=== PATIENT | female | born 1945 | race African-American/Black ===

== ENCOUNTER → 2017-06-04 | Outpatient (CLI) | payer MEDICARE ==
--- NOTE | 2017-06-04 13:50 | MM ---
Reason for exam: additional evaluation requested from prior study. Last mammogram was performed 1 year ago. History: Patient is postmenopausal and has history of breast cancer at age 64. Excisional biopsy of the right breast, April 23, 2009. Mastectomy of the right breast, April 2009. Benign right mammotome panel of the right breast, September 11, 2006. Benign excisional biopsy of the left breast, 1989. Taking antineoplastic for 10 months beginning at age 64. Physical Findings: Nurse did not find any significant physical abnormalities on exam. MG 3D Diag Mammo W/Cad LT CC and MLO view(s) were taken of the left breast. Prior study comparison: June 02, 2016, left breast MG 3d diag mammo w/cad LT. May 30, 2015, left breast MG diagnostic mammo LT w CAD. There are scattered fibroglandular densities. Benign calcifications. There is no discrete abnormality. No significant new findings when compared with previous films. These results were verbally communicated with the patient and result sheet given to the patient on 06/04/17. ASSESSMENT: Benign, BI-RAD 2 RECOMMENDATION: Follow-up diagnostic mammogram of the left breast in 1 year.
== END | disposition home or self-care (01) ==
LOC: RADMAMWWP 12:35
PROVIDERS: ATTEND Internal Medicine Hematology & Oncology
DX: Z08 Encounter for follow-up examination after completed treatment for malignant neoplasm (principal); Z85.3 Personal history of malignant neoplasm of breast
CPT/HCPCS: G0206; G0279

== ENCOUNTER → 2018-02-19 | Outpatient (CLI) | payer MEDICARE ==
--- NOTE | 2018-02-19 10:47 | US ---
EXAMINATION TYPE: US carotid duplex BILAT DATE OF EXAM: 02/19/2018 COMPARISON: NONE CLINICAL HISTORY: R09.89 CAROTID BRUIT. Bruit, ringing in ears EXAM MEASUREMENTS: RIGHT: Peak Systolic Velocity (PSV) cm/sec ----- Right CCA: 56.1 ----- Right ICA: 100.7 ----- Right ECA: 80.0 ICA/CCA ratio: 1.8 RIGHT: End Diastole cm/sec ----- Right CCA: 18.8 ----- Right ICA: 41.4 ----- Right ECA: 17.1 LEFT: Peak Systolic Velocity (PSV) cm/sec ----- Left CCA: 82.3 ----- Left ICA: 119.5 ----- Left ECA: 78.8 ICA/CCA ratio: 1.5 LEFT: End Diastole cm/sec ----- Left CCA: 22.1 ----- Left ICA: 47.0 ----- Left ECA: 15.1 VERTEBRALS (direction of flow): Right Vertebral: Antegrade Left Vertebral: Antegrade Rhythm: Normal IMPRESSION: 1.Mild homogeneous plaque with no significant stenosis seen Criteria for Assigning % of Stenosis / Diameter reduction (Estimation based on the indirect measurements of the internal carotid artery velocities (ICA PSV). 1. Normal (no stenosis)=ICA PSV < 125 cm/s: ratio < 2.0: ICA EDV<40 cm/s. 2. Less than 50% stenosis=ICA PSV < 125 cm/s: ratio < 2.0: ICA EDV<40 cm/s. 3. 50 to 69% stenosis=ICA PSV of 125 to 230 cm/s: ration 2.0 ? 4.0: ICA EDV 40-100 cm/s. 4. Greater than 70% stenosis to near occlusion= ICA PSV > 230 cm/s: ratio > 4.0: ICA EDV > 100 cm/s. 5. Near occlusion= ICA PSV velocities may be low or undetectable: variable ratio and ICA EDV. 6. Total occlusion=unable to detect flow.
== END | disposition home or self-care (01) ==
LOC: RADUSWWP 09:24
PROVIDERS: ATTEND Family Medicine
DX: I65.29 Occlusion and stenosis of unspecified carotid artery (principal)
CPT/HCPCS: 93880

== ENCOUNTER → 2018-06-07 | Outpatient (CLI) | payer MEDICARE ==
--- NOTE | 2018-06-07 14:23 | MM ---
Reason for exam: additional evaluation requested from prior study. Last mammogram was performed 1 year ago. History: Patient is postmenopausal and has history of breast cancer at age 64. Excisional biopsy of the right breast, April 23, 2009. Mastectomy of the right breast, April 2009. Benign right mammotome panel of the right breast, September 11, 2006. Benign excisional biopsy of the left breast, 1989. Taking antineoplastic for 10 months beginning at age 64. Physical Findings: Nurse did not find any significant physical abnormalities on exam. MG 3D Diag Mammo W/Cad LT CC and MLO view(s) were taken of the left breast. Prior study comparison: June 04, 2017, left breast MG 3d diag mammo w/cad LT. June 02, 2016, left breast MG 3d diag mammo w/cad LT. The breast tissue is heterogeneously dense. This may lower the sensitivity of mammography. Stable benign calcifications. No significant new findings when compared with previous films. These results were verbally communicated with the patient and result sheet given to the patient on 06/07/18. ASSESSMENT: Benign, BI-RAD 2 RECOMMENDATION: Follow-up diagnostic mammogram of the left breast in 1 year.
== END | disposition home or self-care (01) ==
LOC: RADMAMWWP 13:17
PROVIDERS: ATTEND Internal Medicine Hematology & Oncology
DX: Z08 Encounter for follow-up examination after completed treatment for malignant neoplasm (principal); Z85.3 Personal history of malignant neoplasm of breast; Z90.11 Acquired absence of right breast and nipple
CPT/HCPCS: 77065; G0279; 77061

== ENCOUNTER 2018-08-22 06:09 | Emergency (ER) | payer MEDICARE ==
[2018-08-22 06:17] VITALS: RESP 18
[2018-08-22] MEDS ORDERED: diphenhydrAMINE 25 MG CAP PO STA (06:38)
[2018-08-22] MEDS ORDERED: METOCLOPRAMIDE 5 MG/ML 2 ML VIAL IVP STA (06:38)
[2018-08-22] MEDS ORDERED: SODIUM CHLORIDE 0.9% 1,000 ML IV STA (06:38)
--- NOTE | 2018-08-22 06:46 | ED ---
General Adult HPI - General Source: patient Mode of arrival: ambulatory Limitations: no limitations <Mary Vaughan - Last Filed: 08/22/18 07:23> <Savage Gonzalez - Last Filed: 08/22/18 08:19> - General Chief complaint: Headache Stated complaint: Headache x 1 week Time Seen by Provider: 08/22/18 06:26 - History of Present Illness Initial comments: She is a 73-year-old morbidly obese -[place] female with a history of breast cancer which was treated surgically. Patient presents to the emergency department today for evaluation of 1 week of headache. She describes the headache as pressure-like band around her whole head but worse in the occiput. Patient reports that the headache is worse at night when she is in bed and seems to improve during the day when she is up and walking around. Headache is associated with ringing in the ears and phonophobia. No vision changes or photophobia. Patient denies any history of headaches. She has not taken anything for this headache including bitn-dur-augqmct medications such as Tylenol or Motrin. Patient reports that last night she was laying in bed, the headache was bothering her and she suddenly began to feel numbness of her entire body. She's never spirits anything like this. Patient reports that when she is to get up she felt very lightheaded. At that point she decided to come to the ER for further evaluation. Denies any fever, vision changes, focal neurologic deficits, weakness in one arm 1 and legs or difficulty with speech or swallowing. She denies any chest pain or shortness of breath. (Mary Vaughan) - Related Data Home Medications Medication Instructions Recorded Confirmed Lisinopril-Hctz 10-12.5 mg 1 tab PO DAILY 04/14/15 08/07/15 [Zestoretic 10-12.5] amLODIPine BESYLATE [Norvasc] 5 mg PO DAILY 04/14/15 08/07/15 CHLORPHEN-HYDROcod 8-10mg/5ml 5 ml PO HS 08/07/15 08/07/15 [Tussionex] Previous Rx's Medication Instructions Recorded Benzonatate [Tessalon Perles] 100 mg PO TID #30 cap 08/07/15 Ciprofloxacin HCl [Cipro] 500 mg PO Q12HR #20 tablet 08/07/15 Pantoprazole Sodium [Protonix] 40 mg PO DAILY #30 tablet. 08/07/15 Allergies Allergy/AdvReac Type Severity Reaction Status Date / Time shellfish derived Allergy Dyspnea Verified 08/22/18 06:17 Review of Systems ROS Other: All systems not noted in ROS Statement are negative. <Mary Vaughan - Last Filed: 08/22/18 07:23> ROS Other: All systems not noted in ROS Statement are negative. <Savage Gonzalez - Last Filed: 08/22/18 08:19> ROS Statement: Those systems with pertinent positive or pertinent negative responses have been documented in the HPI. Past Medical History Past Medical History: Cancer, GERD/Reflux, Hypertension Additional Past Medical History / Comment(s): BREAST History of Any Multi-Drug Resistant Organisms: None Reported Past Surgical History: Breast Surgery, Hysterectomy Additional Past Surgical History / Comment(s): RT MASTECTOMY Past Psychological History: No Psychological Hx Reported Smoking Status: Former smoker Past Alcohol Use History: None Reported Past Drug Use History: None Reported <Mary Vaughan P - Last Filed: 08/22/18 07:23> General Exam Limitations: no limitations <Mary Vaughan - Last Filed: 08/22/18 07:23> <Savage Gonzalez - Last Filed: 08/22/18 08:19> - General Exam Comments Initial Comments: GENERAL: Patient is well-developed and well-nourished. Patient is nontoxic and well- hydrated and is in no distress. HENT: Normocephalic, Atraumatic. Neck is soft and supple. No significant lymphadenopathy is noted. Oropharynx is clear. Moist mucous membranes. Neck has full range of motion without eliciting any pain. EYES: The sclera were anicteric and conjunctiva were pink and moist. Extraocular movements were intact and pupils were equal round and reactive to light. Eyelids were unremarkable. No papilledema on funduscopic exam PULMONARY: Unlabored respirations. Good breath sounds bilaterally. No audible rales rhonchi or wheezing was noted. CARDIOVASCULAR: There is a regular rate and rhythm without any murmurs gallops or rubs. ABDOMEN: Soft and nontender with normal bowel sounds. SKIN: Skin is clear with no lesions or rashes and otherwise unremarkable. NEUROLOGIC: Patient is alert and oriented x3. Cranial nerves II through XII are grossly intact. Motor and sensory are also intact. Normal speech, volume and content. Symmetrical smile. MUSCULOSKELETAL: Normal extremities with adequate strength and full range of motion. No lower extremity swelling or edema. No calf tenderness. LYMPHATICS: No significant lymphadenopathy is noted PSYCHIATRIC: Normal psychiatric evaluation. Limitations: no limitations (Mary Vaughan) Vital Signs 08/22/18 08/22/18 06:13 08:08 Temperature 98.3 F 98.0 F Pulse Rate 76 75 Respiratory 18 18 Rate Blood Pressure 144/76 157/85 O2 Sat by Pulse 99 100 Oximetry Medical Decision Making - Lab Data Result diagrams: 08/22/18 07:01 08/22/18 07:01 - EKG Data -: EKG Interpreted by Ca <Mary Vaughan - Last Filed: 08/22/18 07:23> - Lab Data Result diagrams: 08/22/18 07:01 08/22/18 07:01 <Savage Gonzalez - Last Filed: 08/22/18 08:19> - Medical Decision Making Patient was seen and evaluated history was obtained from the patient No history of headaches presenting with 1 week of headache with associated tinnitus and lightheadedness, no vertigo Physical exam unremarkable Labs and imaging ordered Patient care was signed out to Dr. Gonzalez at 7 AM. (Mary Vaughan) - Lab Data Lab Results 08/22/18 08/22/18 08/22/18 Range/Units 07:01 07:01 07:01 WBC 4.8 (3.8-10.6) k/uL RBC 4.65 (3.80-5.40) m/uL Hgb 13.6 (11.4-16.0) gm/dL Hct 40.9 (34.0-46.0) % MCV 88.0 (80.0-100.0) fL MCH 29.3 (25.0-35.0) pg MCHC 33.3 (31.0-37.0) g/dL RDW 13.9 (11.5-15.5) % Plt Count 231 (150-450) k/uL Neutrophils % 59 % Lymphocytes % 30 % Monocytes % 6 % Eosinophils % 2 % Basophils % 0 % Neutrophils # 2.9 (1.3-7.7) k/uL Lymphocytes # 1.4 (1.0-4.8) k/uL Monocytes # 0.3 (0-1.0) k/uL Eosinophils # 0.1 (0-0.7) k/uL Basophils # 0.0 (0-0.2) k/uL PT 9.8 (9.0-12.0) sec INR 1.0 (<1.2) APTT 23.7 (22.0-30.0) sec Sodium 141 (137-145) mmol/L Potassium 3.7 (3.5-5.1) mmol/L Chloride 107 (98-107) mmol/L Carbon Dioxide 26 (22-30) mmol/L Anion Gap 8 mmol/L BUN 20 H (7-17) mg/dL Creatinine 0.81 (0.52-1.04) mg/dL Est GFR (CKD-EPI)AfAm 84 (>60 ml/min/1.73 sqM) Est GFR (CKD-EPI)NonAf 73 (>60 ml/min/1.73 sqM) Glucose 121 H (74-99) mg/dL Calcium 9.6 (8.4-10.2) mg/dL Total Bilirubin 0.5 (0.2-1.3) mg/dL AST 19 (14-36) U/L ALT 22 (9-52) U/L Alkaline Phosphatase 95 (38-126) U/L Total Protein 6.8 (6.3-8.2) g/dL Albumin 3.9 (3.5-5.0) g/dL - EKG Data EKG Comments: EKG obtained at 620, rate is 81, there are no discernible P waves, a narrow complex rhythm. QRS is 88, QTC is 453. (Mary Vuaghan) Disposition <Mary Vaughan - Last Filed: 08/22/18 07:23> Is patient prescribed a controlled substance at d/c from ED?: No <Savage Gonzalez - Last Filed: 08/22/18 08:19> Clinical Impression: Headache Disposition: HOME SELF-CARE Condition: Good Instructions: Acute Headache (ED) Referrals: Marilin Aden DO [Primary Care Provider] - 1-2 days
[2018-08-22 07:11] LABS: Basophils % (A) 0 %; Eosinophils # (A) 0.1 k/uL (0-0.7); Eosinophils % (A) 2 %; HCT 40.9 % (34.0-46.0); HGB 13.6 gm/dL (11.4-16.0); Lymphocytes # (A) 1.4 k/uL (1.0-4.8); Lymphocytes % (A) 30 %; MCH 29.3 pg (25.0-35.0); MCHC 33.3 g/dL (31.0-37.0); Mean Platelet Volume 6.5; Monocytes # (A) 0.3 k/uL (0-1.0); Monocytes % (A) 6 %; Neutrophils # (A) 2.9 k/uL (1.3-7.7); Neutrophils % (A) 59 %; Platelet Count 231 k/uL (150-450); RBC 4.65 m/uL (3.80-5.40); RDW 13.9 % (11.5-15.5); WBC 4.8 k/uL (3.8-10.6)
[2018-08-22 07:19] LABS: Albumin 3.9 g/dL (3.5-5.0); Calcium 9.6 mg/dL (8.4-10.2); Potassium 3.7 mmol/L (3.5-5.1); Total Bilirubin 0.5 mg/dL (0.2-1.3); Total Protein 6.8 g/dL (6.3-8.2)
[2018-08-22 07:22] LABS: Partial Thromboplastin Time 23.7 sec (22.0-30.0); Prothrombin Time 9.8 sec (9.0-12.0)
--- NOTE | 2018-08-22 07:36 | CT ---
EXAMINATION TYPE: CT brain wo con DATE OF EXAM: 08/22/2018 COMPARISON: Previous study dated 09/06/2010. HISTORY: headache x1 week CT DLP: 1218.4 mGycm Automated exposure control for dose reduction was used. FINDINGS: Central structures are midline. There is no evidence of hydrocephalus. There is diffuse periventricul ar white matter lucency, compatible with small vessel ischemic change. There is no acute focal lesion , mass effect or midline shift identified. I do not see evidence of intracranial blood. Visualized portions of the paranasal sinuses and mastoids are clear. The bony calvarium is intact. IMPRESSION: 1. NO ACUTE INTRACRANIAL ABNORMALITY. 2. MILD, CHRONIC WHITE MATTER ISCHEMIC CHANGE.
[2018-08-22 08:09] VITALS: BP 157/85; PULSE 75; TEMP 98
[2018-08-22] MEDS ORDERED: KETOROLAC 30 MG/ML 1 ML VIAL IVP STA (08:19)
== END 2018-08-22 08:36 | disposition home or self-care (01) ==
LOC: EC 06:09
DX: R51 Headache (principal); R20.0 Anesthesia of skin; R42 Dizziness and giddiness; I10 Essential (primary) hypertension; Z79.899 Other long term (current) drug therapy; Z91.013 Allergy to seafood; Z85.3 Personal history of malignant neoplasm of breast; Z90.11 Acquired absence of right breast and nipple; Z87.891 Personal history of nicotine dependence
CPT/HCPCS: 36415; 93005; 80053; 85025; 85610; 85730; 70450; 99284; 96374; 96375; 96361 ×2; J2765; J1885

== ENCOUNTER → 2019-06-08 | Outpatient (CLI) | payer MEDICARE ==
--- NOTE | 2019-06-08 11:52 | MM ---
Reason for exam: additional evaluation requested from prior study. Last mammogram was performed 1 year ago. History: Patient is postmenopausal and has history of breast cancer at age 64. Excisional biopsy of the right breast, April 23, 2009. Mastectomy of the right breast, April 2009. Benign right mammotome panel of the right breast, September 11, 2006. Benign excisional biopsy of the left breast, 1989. Taking antineoplastic for 10 months beginning at age 64. Physical Findings: Nurse did not find any significant physical abnormalities on exam. MG 3D Diag Mammo W/Cad LT CC, MLO, and XCCL view(s) were taken of the left breast. Prior study comparison: June 07, 2018, left breast MG 3d diag mammo w/cad LT. June 04, 2017, left breast MG 3d diag mammo w/cad LT. The breast tissue is heterogeneously dense. This may lower the sensitivity of mammography. There is chronic nodularity in the left breast medially. Mole lateral anteriorly. No significant new findings when compared with previous films. These results were verbally communicated with the patient and result sheet given to the patient on 06/08/19. ASSESSMENT: Benign, BI-RAD 2 RECOMMENDATION: Routine screening mammogram of the left breast in 1 year.
== END | disposition home or self-care (01) ==
LOC: RADMAMWWP 10:49
PROVIDERS: ATTEND Internal Medicine Hematology & Oncology
DX: Z08 Encounter for follow-up examination after completed treatment for malignant neoplasm (principal); Z85.3 Personal history of malignant neoplasm of breast; Z90.11 Acquired absence of right breast and nipple
CPT/HCPCS: 77065; G0279; 77061

== ENCOUNTER 2019-09-09 02:27 | Emergency (ER) | payer MEDICARE ==
[2019-09-09] MEDS ORDERED: SODIUM CHLORIDE 0.9% 1,000 ML IV STA (02:54)
[2019-09-09] MEDS ORDERED: PANTOPRAZOLE 40 MG/10 ML VIAL IVP STA (02:55)
--- NOTE | 2019-09-09 02:55 | ED ---
Abdominal Pain HPI - General Chief Complaint: Abdominal Pain Stated Complaint: Abd Pain Time Seen by Provider: 09/09/19 02:43 Source: patient Mode of arrival: ambulatory Limitations: no limitations - History of Present Illness Initial Comments: 74-year-old female presenting today for chief complaint of burning in the upper abdomen times one month. Patient states she has had burning after eating in the upper abdomen times one month. She states she has been evaluated by primary care provider and placed on omeprazole. Patient denies any known cardiac history. Patient states that she has had after the initiation of Cipro and Flagyl some loose stools as well as dark stools. Patient denies any matthew red blood. Patient denies any severe stabbing abdominal pains she describes it more as a burning sensation. Denies chest pain shortness of breath jaw pain and arm pain and new back pain. Patient denies any hemoptysis or hematemesis. Patient denies vomiting or fevers. Patient states she felt she could get the test asked her if she presented to the emergency department rather than an outpatient basis and that is why she presented to the emergency department today denies any significant increase in symptoms. - Related Data Home Medications Medication Instructions Recorded Confirmed Dicyclomine HCl 10 mg PO BID 09/09/19 09/09/19 Hydrochlorothiazide 25 mg PO 09/09/19 Omeprazole 20 mg PO 09/09/19 metroNIDAZOLE [Flagyl] 500 mg PO BID 09/09/19 09/09/19 Previous Rx's Medication Instructions Recorded Ciprofloxacin HCl [Cipro] 500 mg PO Q12HR #20 tablet 08/07/15 Pantoprazole Sodium [Protonix] 40 mg PO DAILY 15 Days #15 09/09/19 tablet. Allergies Allergy/AdvReac Type Severity Reaction Status Date / Time shellfish derived Allergy Dyspnea Verified 08/22/18 06:17 Review of Systems ROS Statement: Those systems with pertinent positive or pertinent negative responses have been documented in the HPI. ROS Other: All systems not noted in ROS Statement are negative. Past Medical History Past Medical History: Cancer, GERD/Reflux, Hypertension Additional Past Medical History / Comment(s): BREAST History of Any Multi-Drug Resistant Organisms: None Reported Past Surgical History: Breast Surgery, Hysterectomy Additional Past Surgical History / Comment(s): RT MASTECTOMY Past Psychological History: No Psychological Hx Reported Smoking Status: Former smoker Past Alcohol Use History: None Reported Past Drug Use History: None Reported General Exam - General Exam Comments Initial Comments: General: The patient is awake and alert, in no distress, and does not appear acutely ill. Eye: +3 mm pupils are equal, round and reactive to light, extra-ocular movements are intact. No nystagmus. There is normal conjunctiva bilaterally. No signs of icterus. Ears, nose, mouth and throat: There are moist mucous membranes and no oral lesions. Cardiovascular: There is a regular rate and rhythm. No murmur, rub or gallop is appreciated. Respiratory: Lungs are clear to auscultation, respirations are non-labored, breath sounds are equal. No wheezes, stridor, rales, or rhonchi. Gastrointestinal: Soft, non-distended, Mild to moderate tenderness to palpation of the epigastric, LUQ of the abdomen without masses or organomegaly noted. There is no rebound or guarding present. Musculoskeletal: Normal ROM, no tenderness. Strength 5/5. Sensation intact. Pulses equal bilaterally 2+. Neurological: A&O x 3. CN II-XII intact grossly, There are no obvious motor or sensory deficits. Coordination appears grossly intact. Speech is normal. Skin: Skin is warm and dry and no rashes or lesions are noted. Psychiatric: Cooperative, appropriate mood & affect, normal judgment. Limitations: no limitations Course Vital Signs 09/09/19 09/09/19 09/09/19 02:34 03:15 03:57 Temperature 97.3 F L Pulse Rate 83 67 64 Respiratory 20 18 18 Rate Blood Pressure 130/88 123/76 121/81 O2 Sat by Pulse 100 100 99 Oximetry 09/09/19 04:41 Temperature 98.1 F Pulse Rate 59 L Respiratory 17 Rate Blood Pressure 117/79 O2 Sat by Pulse 97 Oximetry Medical Decision Making - Medical Decision Making 74-year-old female presenting today for chief complaint of burning epigastric abdominal pain times one month currently on omeprazole. Patient denies any increase in frequency. Troponin negative EKG no acute findings reviewed by my attending provider. CT (-). HgB stable, history of dark stool. Concern for peptic ulcer. Recommend outpatient GI f/u. Protonix. Discussed avoidance of spicy foods, NSAIDs, alcohol, coffee, chocolate. Patient verbalized understanding and was discharged appearing well, agreeable [facility] care plan. - Lab Data Result diagrams: 09/09/19 03:05 09/09/19 03:05 Lab Results 09/09/19 09/09/19 09/09/19 Range/Units 03:05 03:05 03:05 WBC 5.7 (3.8-10.6) k/uL RBC 4.98 (3.80-5.40) m/uL Hgb 14.3 (11.4-16.0) gm/dL Hct 44.3 (34.0-46.0) % MCV 89.0 (80.0-100.0) fL MCH 28.8 (25.0-35.0) pg MCHC 32.3 (31.0-37.0) g/dL RDW 13.2 (11.5-15.5) % Plt Count 267 (150-450) k/uL Neutrophils % 53 % Lymphocytes % 36 % Monocytes % 6 % Eosinophils % 2 % Basophils % 0 % Neutrophils # 3.0 (1.3-7.7) k/uL Lymphocytes # 2.1 (1.0-4.8) k/uL Monocytes # 0.4 (0-1.0) k/uL Eosinophils # 0.1 (0-0.7) k/uL Basophils # 0.0 (0-0.2) k/uL Sodium 139 (137-145) mmol/L Potassium 3.6 (3.5-5.1) mmol/L Chloride 108 H (98-107) mmol/L Carbon Dioxide 20 L (22-30) mmol/L Anion Gap 11 mmol/L BUN 21 H (7-17) mg/dL Creatinine 0.97 (0.52-1.04) mg/dL Est GFR (CKD-EPI)AfAm 67 (>60 ml/min/1.73 sqM) Est GFR (CKD-EPI)NonAf 58 (>60 ml/min/1.73 sqM) Glucose 139 H (74-99) mg/dL Plasma Lactic Acid Nicholas 1.7 (0.7-2.0) mmol/L Calcium 9.9 (8.4-10.2) mg/dL Total Bilirubin 0.6 (0.2-1.3) mg/dL AST 27 (14-36) U/L ALT 23 (9-52) U/L Alkaline Phosphatase 107 (38-126) U/L Troponin I (0.000-0.034) ng/mL Total Protein 7.2 (6.3-8.2) g/dL Albumin 4.3 (3.5-5.0) g/dL Amylase 35 (30-110) U/L Lipase 112 (23-300) U/L Urine Color Urine Appearance (Clear) Urine pH (5.0-8.0) Ur Specific [place] (1.001-1.035) Urine Protein (Negative) Urine Glucose (UA) (Negative) Urine Ketones (Negative) Urine Blood (Negative) Urine Nitrite (Negative) Urine Bilirubin (Negative) Urine Urobilinogen (<2.0) mg/dL Ur Leukocyte Esterase (Negative) 09/09/19 09/09/19 Range/Units 03:05 03:05 WBC (3.8-10.6) k/uL RBC (3.80-5.40) m/uL Hgb (11.4-16.0) gm/dL Hct (34.0-46.0) % MCV (80.0-100.0) fL MCH (25.0-35.0) pg MCHC (31.0-37.0) g/dL RDW (11.5-15.5) % Plt Count (150-450) k/uL Neutrophils % % Lymphocytes % % Monocytes % % Eosinophils % % Basophils % % Neutrophils # (1.3-7.7) k/uL Lymphocytes # (1.0-4.8) k/uL Monocytes # (0-1.0) k/uL Eosinophils # (0-0.7) k/uL Basophils # (0-0.2) k/uL Sodium (137-145) mmol/L Potassium (3.5-5.1) mmol/L Chloride (98-107) mmol/L Carbon Dioxide (22-30) mmol/L Anion Gap mmol/L BUN (7-17) mg/dL Creatinine (0.52-1.04) mg/dL Est GFR (CKD-EPI)AfAm (>60 ml/min/1.73 sqM) Est GFR (CKD-EPI)NonAf (>60 ml/min/1.73 sqM) Glucose (74-99) mg/dL Plasma Lactic Acid Nicholas (0.7-2.0) mmol/L Calcium (8.4-10.2) mg/dL Total Bilirubin (0.2-1.3) mg/dL AST (14-36) U/L ALT (9-52) U/L Alkaline Phosphatase (38-126) U/L Troponin I <0.012 (0.000-0.034) ng/mL Total Protein (6.3-8.2) g/dL Albumin (3.5-5.0) g/dL Amylase (30-110) U/L Lipase (23-300) U/L Urine Color Yellow Urine Appearance Clear (Clear) Urine pH 5.0 (5.0-8.0) Ur Specific [place] 1.010 (1.001-1.035) Urine Protein Negative (Negative) Urine Glucose (UA) Negative (Negative) Urine Ketones Negative (Negative) Urine Blood Negative (Negative) Urine Nitrite Negative (Negative) Urine Bilirubin Negative (Negative) Urine Urobilinogen <2.0 (<2.0) mg/dL Ur Leukocyte Esterase Negative (Negative) Disposition Clinical Impression: Abdominal pain Disposition: HOME SELF-CARE Condition: Good Instructions (If sedation given, give patient instructions): Abdominal Pain (ED) Additional Instructions: Please use medication as discussed. Please follow-up with family doctor in the next 2 days. Please return to emergency room if the symptoms increase or worsen or for any other concerns. Prescriptions: Pantoprazole Sodium [Protonix] 40 mg PO DAILY 15 Days #15 tablet.dr Is patient prescribed a controlled substance at d/c from ED?: No Referrals: Marilin Aden DO [Primary Care Provider] - 1-2 days Elliot Smiley MD [STAFF PHYSICIAN] - 1-2 days Barry Martin MD [STAFF PHYSICIAN] - 1-2 days Time of Disposition: 04:21
[2019-09-09 03:26] LABS: Basophils % (A) 0 %; Eosinophils # (A) 0.1 k/uL (0-0.7); Eosinophils % (A) 2 %; HCT 44.3 % (34.0-46.0); HGB 14.3 gm/dL (11.4-16.0); Lymphocytes # (A) 2.1 k/uL (1.0-4.8); Lymphocytes % (A) 36 %; MCH 28.8 pg (25.0-35.0); MCHC 32.3 g/dL (31.0-37.0); Mean Platelet Volume 6.7; Monocytes # (A) 0.4 k/uL (0-1.0); Monocytes % (A) 6 %; Neutrophils % (A) 53 %; Platelet Count 267 k/uL (150-450); RBC 4.98 m/uL (3.80-5.40); RDW 13.2 % (11.5-15.5); WBC 5.7 k/uL (3.8-10.6)
[2019-09-09 03:36] LABS: Albumin 4.3 g/dL (3.5-5.0); Calcium 9.9 mg/dL (8.4-10.2); Potassium 3.6 mmol/L (3.5-5.1); Total Bilirubin 0.6 mg/dL (0.2-1.3); Total Protein 7.2 g/dL (6.3-8.2)
[2019-09-09 03:53] LABS: Appearance,Urine Clear (Clear); Bilirubin,Urine Negative (Negative); Blood,Urine Negative (Negative); Color,Urine Yellow; Glucose,Urine (UA) Negative (Negative); Ketones,Urine Negative (Negative); Leukocyte Esterase,Urine Negative (Negative); Nitrite,Urine Negative (Negative); Protein,Urine Negative (Negative); Urobilinogen,Urine <2.0 mg/dL (<2.0)
--- NOTE | 2019-09-09 04:09 | CT ---
EXAMINATION TYPE: CT abdomen pelvis w con DATE OF EXAM: 09/09/2019 COMPARISON: November 13, 2014 HISTORY: abd pain CT DLP: 2235 mGycm Automated exposure control for dose reduction was used. TECHNIQUE: Helical acquisition of images was performed from the lung bases through the pelvis. CONTRAST: Performed without Oral Contrast and with IV Contrast, patient injected with 100 mL of Isovue 300. FINDINGS: There is mild subsegmental atelectasis at the lung bases. Heart appears enlarged. There is no pericar dial effusion. There is no pleural effusion. Liver spleen stomach gallbladder pancreas appear normal. Bile ducts are not dilated. There is no adrenal mass. Kidneys show satisfactory contrast opacification. There is no hydronephrosi s. Ureters are not dilated. Bladder distends smoothly. There is no inguinal hernia. There is no free fluid in the pelvis. There is broad-based umbilical hernia that contains small bowel without evidence of incarceration. There is numerous phleboliths in the pelvis. There is no evidence of a pelvic mass. There is hysterec armando. There is no mesenteric edema. There is no ascites or free air. The appendix appears normal. The re is no evidence of a bowel obstruction. There are numerous phleboliths and calcified granulomata al usbha the iliac vessels. IMPRESSION: NO SIGN OF ACUTE ABDOMEN AND PELVIS. MINIMAL SUBSEGMENTAL ATELECTASIS AT THE LUNG BASES. NORMAL APPEN DOC.
[2019-09-09 04:42] VITALS: BP 117/79; PULSE 59; RESP 17; TEMP 98.1
== END 2019-09-09 04:42 | disposition home or self-care (01) ==
LOC: EC 02:27
DX: R10.13 Epigastric pain (principal); K21.9 Gastro-esophageal reflux disease without esophagitis; I10 Essential (primary) hypertension; Z79.899 Other long term (current) drug therapy; Z87.891 Personal history of nicotine dependence; Z91.013 Allergy to seafood; Z85.3 Personal history of malignant neoplasm of breast; Z90.11 Acquired absence of right breast and nipple
CPT/HCPCS: 36415; 74177; 80053; 81003; 82150; 83605; 83690; 84484; 85025; 93005; 96361; 96374; 99284

== ENCOUNTER 2019-11-01 08:09 | Day surgery (SDC) | payer MEDICARE ==
[2019-10-27 15:17] VITALS: BMI 41.9
[~2019-11-01 08:09] MED LIST: LACTATED RINGERS 1,000 ML IV SCH; LIDOCAINE 1% 20 ML VIAL (10MG/ML) FOR IV START INTRADERMA PRN
[2019-11-01 08:24] VITALS: TEMP 97.6
[2019-11-01] MEDS ORDERED: fentaNYL (PF) 50 MCG/ML 2 ML AMP ONE (08:59)
[2019-11-01] MEDS ORDERED: LIDOCAINE 1% INJ 10MG/ML (20 ML MDV) ONE (08:59)
[2019-11-01] MEDS ORDERED: PROPOFOL 10 MG/ML 20 ML VIAL IV ONE (08:59)
--- NOTE | 2019-11-01 09:01 | P.GSHP ---
History of Present Illness H&P Date: 11/01/19 Chief Complaint: GERD, dull pain, screening colonoscopy Cyst 74-year-old female presents today for EGD and screening colonoscopy. Patient had complaints of GERD and abdominal pain. Past Medical History Past Medical History: Cancer, GERD/Reflux, Hypertension Additional Past Medical History / Comment(s): rt BREAST cancer 2008, experiencing burning in stomach, hx vertigo History of Any Multi-Drug Resistant Organisms: None Reported Past Surgical History: Breast Surgery, Hysterectomy Additional Past Surgical History / Comment(s): RT MASTECTOMY Past Anesthesia/Blood Transfusion Reactions: No Reported Reaction Smoking Status: Former smoker - Past Family History Mother Family Medical History: No Reported History Medications and Allergies Home Medications Medication Instructions Recorded Confirmed Type Omeprazole 40 mg PO DAILY 09/09/19 11/01/19 History Bisoprolol Fumarate 5 mg PO DAILY 10/27/19 11/01/19 History Famotidine [Pepcid] 40 mg PO HS 10/27/19 11/01/19 History Allergies Allergy/AdvReac Type Severity Reaction Status Date / Time shellfish derived Allergy Dyspnea Verified 10/27/19 15:05 Surgical - Exam Vital Signs Temp Pulse Resp BP Pulse Ox 97.6 F 68 16 185/97 99 11/01/19 08:21 11/01/19 08:21 11/01/19 08:21 11/01/19 08:21 11/01/19 08:21 - General well developed, well nourished, no distress - Eyes PERRL - ENT normal pinna - Neck no masses - Respiratory normal expansion - Cardiovascular Rhythm: regular - Abdomen Abdomen: soft, non tender Assessment and Plan Assessment: GERD Dull pain. We'll perform EGD and screening colonoscopy
--- NOTE | 2019-11-01 09:17 | P.OP ---
Date of Procedure: 11/01/19 Preoperative Diagnosis: GERD. Abdominal pain Screening colonoscopy Postoperative Diagnosis: Antral gastritis Procedure(s) Performed: EGD Anesthesia: MAC Surgeon: Ayden Pena Pathology: other (Antrum) Condition: stable Disposition: PACU Description of Procedure: The patient's placed on the endoscopy table lateral position. She received IV sedation. The gastroscope placed oropharynx and passed in the esophagus into the stomach. Scope was then placed through the pylorus. The first and second portion of the duodenum appeared normal. Scope was then brought back the antrum this was mildly inflamed. A biopsies performed. The scope was then retroflexed and the remainder stomach appeared normal. There is no significant hiatal hernia. The GE junction was at 47 is. The distal esophagus appeared normal. The proximal esophagus appeared normal. Scope withdrawn for patient. Next digital rectal exam performed. This revealed a few external hemorrhoids. Flexible colonoscope was then placed patient anus passed throughout the entire colon. The ileocecal valve was visualized. The cecum, ascending and transverse colon appeared normal. Descending and sigmoid colon appeared normal. Scope was then brought back the rectum this appeared normal. Scope was then withdrawn for patient.
[2019-11-01 09:22] VITALS: PULSE 49
[2019-11-01 09:48] VITALS: BP 146/70; RESP 20
== END 2019-11-01 09:50 | disposition home or self-care (01) ==
LOC: ORWHC2ENDO 08:09
PROVIDERS: ATTEND Surgery
DX: K29.50 Unspecified chronic gastritis without bleeding (principal); K64.4 Residual hemorrhoidal skin tags; K21.9 Gastro-esophageal reflux disease without esophagitis; Z91.013 Allergy to seafood; I10 Essential (primary) hypertension; Z87.891 Personal history of nicotine dependence; E66.01 Morbid (severe) obesity due to excess calories; Z68.41 Body mass index [BMI] 40.0-44.9, adult; Z85.3 Personal history of malignant neoplasm of breast; Z79.899 Other long term (current) drug therapy; Z90.11 Acquired absence of right breast and nipple
CPT/HCPCS: 88305; 45378; 43239; J2001; J3010; J2704

== ENCOUNTER → 2020-08-17 | Outpatient (CLI) | payer MEDICARE ==
--- NOTE | 2020-08-20 11:11 | MM ---
Reason for exam: screening (asymptomatic). Last mammogram was performed 1 year and 2 months ago. History: Patient is postmenopausal and has history of breast cancer at age 64. Excisional biopsy of the right breast, April 23, 2009. Mastectomy of the right breast, April 2009. Benign right mammotome panel of the right breast, September 11, 2006. Benign excisional biopsy of the left breast, 1989. Taking antineoplastic for 10 months beginning at age 64. Physical Findings: A clinical breast exam by your physician is recommended on an annual basis and results should be correlated with mammographic findings. MG 3D Scr Davide Unilateral W/Cad CC and MLO view(s) were taken of the left breast. Prior study comparison: June 08, 2019, left breast MG 3d diag mammo w/cad LT. June 07, 2018, left breast MG 3d diag mammo w/cad LT. The breast tissue is heterogeneously dense. This may lower the sensitivity of mammography. There is no discrete abnormality. No significant changes when compared with prior studies. ASSESSMENT: Negative, BI-RAD 1 RECOMMENDATION: Routine screening mammogram of both breasts.
== END | disposition home or self-care (01) ==
LOC: RADMAMWWP 10:47
PROVIDERS: ATTEND Internal Medicine Hematology & Oncology
DX: Z12.31 Encounter for screening mammogram for malignant neoplasm of breast (principal); Z90.11 Acquired absence of right breast and nipple
CPT/HCPCS: 77067

== ENCOUNTER → 2021-08-29 | Outpatient (CLI) | payer MEDICARE ==
--- NOTE | 2021-08-30 11:50 | MM ---
Reason for exam: screening (asymptomatic). Last mammogram was performed 1 year ago. History: Patient is postmenopausal and has history of breast cancer at age 64. Excisional biopsy of the right breast, April 23, 2009. Mastectomy of the right breast, April 2009. Benign right mammotome panel of the right breast, September 11, 2006. Benign excisional biopsy of the left breast, 1989. Took estrogen for 6 months. Taking antineoplastic for 10 months beginning at age 64. Physical Findings: A clinical breast exam by your physician is recommended on an annual basis and results should be correlated with mammographic findings. MG 3D Scr Davide Unilateral W/Cad CC, MLO, and XCCL view(s) were taken of the left breast. Prior study comparison: August 17, 2020, bilateral MG 3d scr davide unilateral w/cad. June 08, 2019, left breast MG 3d diag mammo w/cad LT. There are scattered fibroglandular densities. There are benign appearing vascular calcifications in the left breast. There is no discrete abnormality. Benign left axillary lymph nodes redemonstrated. ASSESSMENT: Benign, BI-RAD 2 RECOMMENDATION: Routine screening mammogram of the left breast in 1 year.
== END ==
LOC: RADMAMWWP 11:41
PROVIDERS: ATTEND Internal Medicine Hematology & Oncology
DX: Z12.31 Encounter for screening mammogram for malignant neoplasm of breast (principal); Z85.3 Personal history of malignant neoplasm of breast; R92.1 Mammographic calcification found on diagnostic imaging of breast
CPT/HCPCS: 77067

== ENCOUNTER → 2022-09-01 | Outpatient (CLI) | payer MEDICARE ==
--- NOTE | 2022-09-01 11:35 | MM ---
Reason for Exam: Hx of breast cancer, mastectomy. Last screening mammogram was performed 12 month(s) ago. Patient History: Menarche at age 12. First Full-Term at age 15. Left ovary removed at age 52. Right ovary removed at age 52. Hysterectomy at age 52. Postmenopausal. Breast cancer, right, age 64. Estrogen for 6 months. 04/2009, Mastectomy on the Right side. 04/23/2009, Excisional Biopsy on the Right side. 1989, Benign Excisional Biopsy on the left side. 09/11/2006, Benign Core Biopsy on the right side. Prior Study Comparison: 05/30/2015 Left Diagnostic Mammogram, [facility]. 06/02/2016 Left Diagnostic Mammogram, [facility]. 06/04/2017 Left Diagnostic Mammogram, [facility]. 06/07/2018 Left Diagnostic Mammogram, [facility]. 06/08/2019 Left Diagnostic Mammogram, [facility]. 08/17/2020 Bilateral Screening Mammogram, [facility]. 08/29/2021 Bilateral Screening Mammogram, [facility]. Tissue Density: Left: There are scattered fibroglandular densities. Findings: Analyzed By CAD. No evidence for mass or distortion. No suspicious calcifications evident. Overall Assessment: Benign, BI-RAD 2 Management: Diagnostic Mammogram of the left breast in 1 year. A clinical breast exam by your physician is recommended on an annual basis and results should be correlated with mammographic findings. This exam should not preclude additional follow-up of suspicious palpable abnormalities. Results were given to the patient verbally at the time of exam. Electronically signed and approved by: Mahad Medina M.D. Radiologis
== END | disposition home or self-care (01) ==
LOC: RADMAMWWP 10:45
PROVIDERS: ATTEND Internal Medicine Hematology & Oncology
DX: C50.111 Malignant neoplasm of central portion of right female breast (principal); Z78.0 Asymptomatic menopausal state; Z90.721 Acquired absence of ovaries, unilateral; Z90.11 Acquired absence of right breast and nipple
CPT/HCPCS: 77065; G0279; 77061

== ENCOUNTER → 2023-03-03 | Outpatient (CLI) | payer MEDICARE | END | disposition home or self-care (01) | LOC: RADNMMAIN 08:40 | PROVIDERS: ATTEND Family Medicine | DX: Z53.9 Procedure and treatment not carried out, unspecified reason (principal) ==

== ENCOUNTER → 2023-09-02 | Outpatient (CLI) | payer MEDICARE ==
--- NOTE | 2023-09-02 13:20 | MM ---
Reason for Exam: Hx of breast cancer, conservation therapy. Last screening mammogram was performed 12 month(s) ago. Patient History: Menarche at age 12. First Full-Term at age 15. Left ovary removed at age 52. Right ovary removed at age 52. Hysterectomy at age 52. Postmenopausal. Breast cancer, right, age 64. Estrogen for 6 months. 04/2009, Mastectomy on the Right side. 04/23/2009, Excisional Biopsy on the Right side. 1989, Benign Excisional Biopsy on the left side. 09/11/2006, Benign Core Biopsy on the right side. Prior Study Comparison: 08/17/2020 Bilateral Screening Mammogram, [facility]. 08/29/2021 Bilateral Screening Mammogram, [facility]. 09/01/2022 Left MG 3D diag mammo w/cad , [facility]. Tissue Density: Left: The breast tissue is heterogeneously dense. This may lower the sensitivity of mammography. Findings: Analyzed By CAD. Unchanged low axillary tail lymph nodes. Benign vascular calcifications throughout the left breast. Superficial nodule lateral anterior left breast is unchanged and most suggestive of a mole or benign superficial cyst. No significant change from prior exams. Overall Assessment: Benign, BI-RAD 2 Management: Screening Mammogram of the left breast in 1 year. . Results were given to the patient verbally at the time of exam. Patient should continue monthly self-breast exams. A clinical breast exam by your physician is recommended on an annual basis. This exam should not preclude additional follow-up of suspicious palpable abnormalities. Electronically signed and approved by: Agata Pierce M.D. Radiologist
== END | disposition home or self-care (01) ==
LOC: RADMAMWWP 12:49
PROVIDERS: ATTEND Internal Medicine Hematology & Oncology
DX: C50.111 Malignant neoplasm of central portion of right female breast (principal); R92.332 Mammographic heterogeneous density, left breast; M15.0 Primary generalized (osteo)arthritis; M54.50 Low back pain, unspecified; Z85.3 Personal history of malignant neoplasm of breast; Z17.0 Estrogen receptor positive status [ER+]; Z78.0 Asymptomatic menopausal state
CPT/HCPCS: 77065; G0279; 77061

== ENCOUNTER → 2024-09-05 | Outpatient (CLI) | payer MEDICARE ==
--- NOTE | 2024-09-05 13:21 | MM ---
Reason for Exam: Hx of breast cancer, mastectomy. Last screening mammogram was performed 12 month(s) ago. Patient History: Menarche at age 12. First Full-Term at age 15. Left ovary removed at age 52. Right ovary removed at age 52. Hysterectomy at age 52. Postmenopausal. Breast cancer, right, age 64. Estrogen for 6 months. 04/2009, Mastectomy on the Right side. 04/23/2009, Excisional Biopsy on the Right side. 1989, Benign Excisional Biopsy on the left side. 09/11/2006, Benign Core Biopsy on the right side. Prior Study Comparison: 08/29/2021 Bilateral Screening Mammogram, [facility]. 09/01/2022 Left MG 3D diag mammo w/cad LT, [facility]. 09/02/2023 Left MG 3D diag mammo w/cad LT, [facility]. Tissue Density: Left: The breasts are heterogeneously dense, which may obscure small masses. Findings: Analyzed By CAD. Redemonstrated benign vascular calcifications. Mole again noted along the lateral anterior aspect of left breast. Chronic low density nodularity medial middle depth. No significant change from prior exams. Overall Assessment: Benign, BI-RAD 2 Management: Screening Mammogram of the left breast in 1 year. Results were given to the patient verbally at the time of exam. Patient should continue monthly self-breast exams. A clinical breast exam by your physician is recommended on an annual basis. This exam should not preclude additional follow-up of suspicious palpable abnormalities. [facility], , 09/05/2024 1:18 PM. Electronically signed and approved by: Agata Pierce M.D. Radiologist
== END | disposition home or self-care (01) ==
LOC: RADMAMWWP 12:45
PROVIDERS: ATTEND Internal Medicine Hematology & Oncology
DX: C50.111 Malignant neoplasm of central portion of right female breast (principal); M54.50 Low back pain, unspecified; M15.0 Primary generalized (osteo)arthritis; Z17.0 Estrogen receptor positive status [ER+]; Z71.3 Dietary counseling and surveillance; Z78.0 Asymptomatic menopausal state; Z90.722 Acquired absence of ovaries, bilateral; Z90.11 Acquired absence of right breast and nipple; Z85.3 Personal history of malignant neoplasm of breast; R92.332 Mammographic heterogeneous density, left breast
CPT/HCPCS: 77065; G0279; 77061